=== PATIENT | female | born 1965 | race Caucasian/White ===

== ENCOUNTER 2019-09-27 14:09 | Inpatient (IN) | payer OTHER ==
[~2019-09-27] VITALS: Ht 167.6 cm; Wt 99.3 kg
[2019-09-27 15:17] LABS: BASOPHILS ABSOLUTE AUTO 0.06 K/mm3 (0.00-0.23); BASOPHILS PERCENT AUTO 0 % (0-2); EOSINOPHILS ABSOLUTE AUTO 0.01 K/mm3 (0.00-0.68); EOSINOPHILS PERCENT AUTO 0 % (0-6); Hematocrit 35.3 % (33.0-51.0); Hemoglobin 11.3 g/dL (11.5-16.0); IMMATURE GRAN ABSOLUTE AUTO 0.12 K/mm3 (0.00-0.10); IMMATURE GRAN PERCENT AUTO 1 % (0-1); LYMPHOCYTES ABSOLUTE AUTO 1.34 K/mm3 (0.84-5.20); LYMPHOCYTES PERCENT AUTO 8 % (21-46); MONOCYTES ABSOLUTE AUTO 1.32 K/mm3 (0.16-1.47); MONOCYTES PERCENT AUTO 8 % (4-13); Mean Corpuscular HGB 28.9 pg (26.0-34.0); Mean Corpuscular Volume 90 fL (80-100); Mean Platelet Volume 11.5 fL (9.1-12.4); NEUTROPHILS ABSOLUTE AUTO 14.67 K/mm3 (1.96-9.15); NEUTROPHILS PERCENT AUTO 84 % (41-73); Platelet Count 207 K/mm3 (150-400); RDW Standard Deviation 48.4 fL (35.1-46.3); Red Blood Cell Count 3.91 M/mm3 (3.80-5.20); White Blood Cell Count 17.52 K/mm3 (4.00-11.30)
[2019-09-27 15:53] LABS: Alanine Aminotransfer (ALT/SGP 15 U/L (12-78); Albumin, Blood 3.1 g/dL (3.4-5.0); Albumin/Globulin Ratio 0.6 (0.8-1.8); Alk Phos 94 U/L (50-136); Anion Gap 9 mmol/L (6-16); Aspartate Aminotrans (AST/SGOT 17 U/L (12-37); Bilirubin, Total 1.2 mg/dL (0.1-1.0); Blood Urea Nitrogen 30 mg/dL (8-24); Bun/Creatinine Ratio 21.3 (12.0-20.0); CO2, Blood 19 mmol/L (21-32); Calcium, Blood 8.7 mg/dL (8.5-10.1); Chloride, Blood 105 mmol/L (98-108); Creatinine, Blood 1.41 mg/dL (0.40-1.00); Globulin, Blood 4.9 g/dL (2.2-4.0); Glomerular Filtration Rate 41 (60-); Glucose, Blood 209 mg/dL (70-99); Potassium, Blood 3.6 mmol/L (3.5-5.5); Sodium, Blood 133 mmol/L (136-145); Troponin I <0.015 ng/mL (0.000-0.040)
[2019-09-27] MEDS ORDERED: CALCIUM 600 +1 EA11 (17:03)
[2019-09-27] MEDS ORDERED: MELATONIN5 M1 PO (17:03)
[2019-09-27] MEDS ORDERED: ASCO500 PO (17:03)
[2019-09-27] MEDS ORDERED: GABA300 PO (17:04)
[2019-09-27] MEDS ORDERED: METO100 PO (17:05)
[2019-09-27] MEDS ORDERED: TOPI50 PO (17:05)
[2019-09-27] MEDS ORDERED: BENZ100A (17:06)
[2019-09-27] MEDS ORDERED: Jantoven10 MG PO (17:06)
[2019-09-27] MEDS ORDERED: TORSE20 PO (17:07)
[2019-09-27] MEDS ORDERED: NEURONTIN300 MG PO (18:11)
[2019-09-27] MEDS ORDERED: BUPROPION XL150 M1 PO (18:11)
[2019-09-27] MEDS ORDERED: DILTIAZEM ER300 MG PO (18:11)
[2019-09-27] MEDS ORDERED: WARF1 PO (18:17)
[2019-09-27 18:53] LABS: International Normalized Ratio 1.88; Prothrombin Time Results 19.4 Sec (9.7-11.5)
[2019-09-27 22:30] LABS: PCO2 Arterial 27.1 mmHg (35-45); PO2 Arterial 65.8 mmHg (80-100); pH Blood Arterial 7.38 (7.35-7.45)
--- NOTE | 2019-09-27 23:13 | NUR ---
2200 PATIENT CALLED REQUESTING BLANKETS. VELMA RN ENTERED ROOM AND NOTICED FACE MORE PURPLE AND LIPS BLUEISH. PATIENT TALKING IN FULL SENTENCES AND BUT RESP AROUND 30. NOTICED MOTTLING ON ARMS AND LEGS. O2 STARTED AT 2L, O2 SATS HARD TO ASSESS D/T LOW PROFUSION. O2 INCREASED TO 4L NC. SUSAN RT NOTIFIED AND ARRIVED AT ROOM. NATALIYA JOSE, ICU ARRIVED PATIENT COLOR RETURNING, O2 SAT IMPROVED TO 93%. ABG DRAWN BY RT TAMEKA, RESULTS UNREMARKABLE. THIS RN, DAMON AN AND SUSAN RT REVIEWED CHARTS AND HISTORY. PATIENTS SYMPTOMS RESOLVED SPONTANIOUSLY.
[2019-09-27 23:46] LABS: Source, Urine Catheter
[2019-09-27 23:53] LABS: Bilirubin, Urine Neg (Neg); Blood, Urine Neg (Neg); Glucose Qualitative, Urine Neg (Neg); Ketones, Urine Neg (Neg); Leukocyte Esterase, Urine Neg (Neg); Nitrite, Urine Neg (Neg); Protein, Urine Neg (Neg); Specific Gravity, Urine 1.025 (1.003-1.022); Urobilinogen, Urine NORM (Normal)
[2019-09-28 00:07] LABS: Appearance, Urine Hazy (Clear); Color, Urine Yellow (P-Yellow)
[2019-09-28 00:09] LABS: U Amphetamine Screen Not Detected; U Barbituate Screen Not Detected; U Benzodiazapine Screen Not Detected; U Buprenorphine Screen Not Detected; U Cannabinoids Screen DETECTED; U Cocaine Screen Not Detected; U Methadone Screen Not Detected; U Methamphetamine Screen Not Detected; U Opiates Screen Not Detected; U Oxycodone Screen Not Detected; U Phencyclidine Screen Not Detected; U Propoxyphene Screen Not Detected
[2019-09-28 00:09] LABS: Amorphous Light (0-Heavy); Bacteria Many /hpf; Mucus Light (0-Heavy); Red Blood Cells, Urine Not Seen /hpf (0-2); Squamous Epithelial Cells Many /hpf (Few)
[2019-09-28 04:37] LABS: BASOPHILS ABSOLUTE AUTO 0.09 K/mm3 (0.00-0.23); BASOPHILS PERCENT AUTO 1 % (0-2); EOSINOPHILS ABSOLUTE AUTO 0.11 K/mm3 (0.00-0.68); EOSINOPHILS PERCENT AUTO 1 % (0-6); Hematocrit 36.1 % (33.0-51.0); Hemoglobin 10.4 g/dL (11.5-16.0); IMMATURE GRAN ABSOLUTE AUTO 0.15 K/mm3 (0.00-0.10); IMMATURE GRAN PERCENT AUTO 1 % (0-1); LYMPHOCYTES ABSOLUTE AUTO 2.03 K/mm3 (0.84-5.20); LYMPHOCYTES PERCENT AUTO 12 % (21-46); MONOCYTES ABSOLUTE AUTO 0.96 K/mm3 (0.16-1.47); MONOCYTES PERCENT AUTO 6 % (4-13); Mean Corpuscular HGB 28.3 pg (26.0-34.0); Mean Corpuscular HGB Conc 28.8 g/dL (31.5-36.5); Mean Platelet Volume 11.7 fL (9.1-12.4); NEUTROPHILS ABSOLUTE AUTO 13.43 K/mm3 (1.96-9.15); NEUTROPHILS PERCENT AUTO 80 % (41-73); Platelet Count 195 K/mm3 (150-400); RDW Coefficient Variation 15.1 % (11.7-14.2); RDW Standard Deviation 54.7 fL (35.1-46.3); Red Blood Cell Count 3.68 M/mm3 (3.80-5.20); White Blood Cell Count 16.77 K/mm3 (4.00-11.30)
[2019-09-28 04:39] LABS: Mean Corpuscular Volume 98 fL (80-100)
[2019-09-28 04:51] LABS: International Normalized Ratio 2.24; Prothrombin Time Results 22.9 Sec (9.7-11.5)
[2019-09-28 04:59] LABS: Albumin, Blood 2.7 g/dL (3.4-5.0); Albumin/Globulin Ratio 0.6 (0.8-1.8); Bilirubin, Total 1.1 mg/dL (0.1-1.0); Bun/Creatinine Ratio 20.8 (12.0-20.0); Calcium, Blood 7.5 mg/dL (8.5-10.1); Creatinine, Blood 1.44 mg/dL (0.40-1.00); Globulin, Blood 4.9 g/dL (2.2-4.0); Potassium, Blood 4.2 mmol/L (3.5-5.5); Total Protein, Blood 7.6 g/dL (6.4-8.2)
--- NOTE | 2019-09-28 06:25 | NUR ---
ASSUMED CARE OF PATIENT SHORTLY AFTER SHIFT CHANGE. SEPSIS PROTOCOL INITIATED. ADMINISTERED 2.5L BOLUS AND STARTED MAINTENANCE FLUIDS OF 150/HR. PATIENT COMPLAINING OF SOB. BREATHING 94% SPO2 ON 4L NC. COMPLAINING OF CHRONIC BACK PAINS UNRELIEVED BY TYLENOL, BACLOFEN, TRAMADOL AND NORCO. PATIENT INCREASINGLY ANXIOUS AND INCONSOLABLE. SPIRITUAL CARE CONSULT CALLED. UA POSITIVE FOR INFECTION. EDUCATED PATIENT ON USE OF CALL LIGHT FOR ASSISTANCE. BED LOWERED TO LOWEST POSITION, CALL LIGHT WITHIN REACH. WILL CONTINUE TO MONITOR UNTIL END OF SHIFT.
--- NOTE | 2019-09-28 12:50 | NUR ---
Echocardiogram completed.
[2019-09-28 13:00] LABS: PCO2 Arterial 26.1 mmHg (35-45); PO2 Arterial 91.4 mmHg (80-100); pH Blood Arterial 7.14 (7.35-7.45)
--- NOTE | 2019-09-28 13:00 | NUR ---
TRANSFER PT TRANSFERED TO ICU 7. REPORT GIVEN TO LILIANE Sanders RN. PT IS ALERT, RESP LABORED, 6 L O2 VIA NC, BELONGINGS TRANSFERED WITH PT. ECHO WAS COMPLETED PRIOR TO TRANSFER.
[2019-09-28 14:40] LABS: Source, Urine Catheter
[2019-09-28 14:42] LABS: BASOPHILS ABSOLUTE AUTO 0.06 K/mm3 (0.00-0.23); BASOPHILS PERCENT AUTO 0 % (0-2); EOSINOPHILS ABSOLUTE AUTO 0.01 K/mm3 (0.00-0.68); EOSINOPHILS PERCENT AUTO 0 % (0-6); Hematocrit 36.8 % (33.0-51.0); Hemoglobin 10.9 g/dL (11.5-16.0); IMMATURE GRAN ABSOLUTE AUTO 0.45 K/mm3 (0.00-0.10); IMMATURE GRAN PERCENT AUTO 2 % (0-1); LYMPHOCYTES ABSOLUTE AUTO 1.15 K/mm3 (0.84-5.20); LYMPHOCYTES PERCENT AUTO 6 % (21-46); MONOCYTES PERCENT AUTO 6 % (4-13); Mean Corpuscular HGB 28.2 pg (26.0-34.0); Mean Corpuscular HGB Conc 29.6 g/dL (31.5-36.5); Mean Corpuscular Volume 95 fL (80-100); NEUTROPHILS ABSOLUTE AUTO 16.71 K/mm3 (1.96-9.15); NEUTROPHILS PERCENT AUTO 86 % (41-73); NRBC ABSOLUTE 0.02 K/mm3 (0.00-0.02); NRBC Auto 0.1 /100 WBC (0.0-0.2); Platelet Count 231 K/mm3 (150-400); RDW Coefficient Variation 15.3 % (11.7-14.2); RDW Standard Deviation 53.8 fL (35.1-46.3); Red Blood Cell Count 3.87 M/mm3 (3.80-5.20); White Blood Cell Count 19.48 K/mm3 (4.00-11.30)
[2019-09-28 14:43] LABS: Bilirubin, Urine Neg (Neg); Blood, Urine 1+ (Neg); Glucose Qualitative, Urine Neg (Neg); Ketones, Urine 1+ (Neg); Leukocyte Esterase, Urine 1+ (Neg); Nitrite, Urine Neg (Neg); Protein, Urine 3+ (Neg); Specific Gravity, Urine 1.025 (1.003-1.022); Urobilinogen, Urine NORM (Normal)
[2019-09-28 14:56] LABS: Appearance, Urine Cloudy (Clear); Color, Urine Yellow (P-Yellow)
[2019-09-28 14:59] LABS: Amorphous Light (0-Heavy); Bacteria Few /hpf; Squamous Epithelial Cells Mod /hpf (Few)
[2019-09-28 15:07] LABS: Albumin, Blood 2.5 g/dL (3.4-5.0); Anion Gap 15 mmol/L (6-16); Blood Urea Nitrogen 37 mg/dL (8-24); Bun/Creatinine Ratio 17.5 (12.0-20.0); CO2, Blood 13 mmol/L (21-32); Calcium, Blood 7.1 mg/dL (8.5-10.1); Chloride, Blood 109 mmol/L (98-108); Creatinine, Blood 2.11 mg/dL (0.40-1.00); Glomerular Filtration Rate 26 (60-); Glucose, Blood 145 mg/dL (70-99); Phosphorus, Blood 7.6 mg/dL (2.5-4.9); Potassium, Blood 5.6 mmol/L (3.5-5.5); Sodium, Blood 137 mmol/L (136-145); Troponin I <0.015 ng/mL (0.000-0.040)
--- NOTE | 2019-09-28 15:30 | NUR ---
Echocardiogram completed.
[2019-09-28 15:42] LABS: Prothrombin Time Results 43.3 Sec (9.7-11.5)
[2019-09-28 15:44] LABS: International Normalized Ratio 4.4
[2019-09-28 15:52] LABS: PCO2 Arterial 20.3 mmHg (35-45); PO2 Arterial 489 mmHg (80-100)
[2019-09-28 15:53] LABS: pH Blood Arterial 7.24 (7.35-7.45)
[2019-09-28 16:11] LABS: Adenovirus Not Detected (NOT DETECT); Bordetella pertussis Not Detected (NOT DETECT); Chlamydophila pneumoniae Not Detected (NOT DETECT); Coronavirus 229E Not Detected (NOT DETECT); Coronavirus HKU1 Not Detected (NOT DETECT); Coronavirus NL63 Not Detected (NOT DETECT); Coronavirus OC43 Not Detected (NOT DETECT); Human Metapneumovirus Not Detected (NOT DETECT); Human Rhinovirus/Enterovirus Not Detected (NOT DETECT); Influenza A/2009-H1 Not Detected (NOT DETECT); Influenza A/H1 Not Detected (NOT DETECT); Influenza A/H3 Not Detected (NOT DETECT); Influenza B Not Detected (NOT DETECT); Mycoplasma pneumoniae Not Detected (NOT DETECT); Parainfluenza Virus 1 Not Detected (NOT DETECT); Parainfluenza Virus 2 Not Detected (NOT DETECT); Parainfluenza Virus 3 Not Detected (NOT DETECT); Parainfluenza Virus 4 Not Detected (NOT DETECT); Respiratory Syncytial Virus Not Detected (NOT DETECT)
--- NOTE | 2019-09-28 16:26 | NUR ---
ICU TRANSFER Assumed care of pt upon arrival to unit from ICU 7 from PCU 9 at 1240. Pt transferred to ICU per Dr Campa due to increased work of breathing. On arrival, pt was A&O x 4. Speaking in 2-3 word sentences. Inquired who should be notified of her transfer to ICU. Pt states "They don't know I'm here anyways, so what's the point". Family attempted to be reached by CONFERENCE PLANNING MANAGER, Alix - tabitha. Pt on 6 LPM NC. Unable to obtain SpO2 reading initially, until forehead sensor placed. Sats below 90% with poor quality pleth. Pt placed on 15 LPM oxymizer. RR 30. Pt gasping when breathing. Lung sounds coarse in upper lobes and dim in lower lobes. Unable to obtain BP reading with brachial or radial cuff, however pt remains alert and answering questions. This RN addressed pt's code status, which was initially DNR. Discussed that pt is currently extremely ill and close to intubation. Pt states she is familiar with this as she was recently intubated during a hospitalization at [facility]. This RN asks pt if she is okay with intuabtion again. Pt states "Well I'm 53 years old, but I'm homeless, penniless. I'm not close with my family. What's the point of keeping me alive." Pt then details that she thinks her family would be upset with her if she chose to be a DNR and states "Do everything you need to, to keep me alive.". Dr Higgins notified of pt's wishes, and pt changed to full code. Dr Higgins in room at 1300 to assess patient. Decision made to intubate. Pt verbalizes understanding. Anxious. Pt states her main concern is shortness of breath. Pt received 100 mg propofol, 10 mg versed, and 50 mg rocuronium for intubation. Intubated with 7.5 cm ETT, 24 cm DANIEL, at 1322. Connected to ventilator AC 16/450/5/100%. Ventilator settings titrated and eventually changed to AC 16, pressure control 26/16, FiO2 100%. PEEP 16. Pt started on levophed, initially at 5 mcg/min, peripherally. Central line placed to right IJ by Dr Higgins. Levophed titrated up to 30 mcg/min, vasopressin started. Nimbex started. Still unable to obtain peripheral BP. OG tube and andrade inserted. CXR obtained to verify placement of CVC, OG tube, and ETT. Arterial line started to right axilla by Dr Higgins. BP measured- MAP 80s-90s. Began titrating levophed down. At this time, pt is on vasopressin and 10 mcg/min levophed. Propofol 40 mcg/kg/min. Nimbex at 4 mcg/min. Train 4/4. BIS score 40. Dr Higgins attempted to get a hold of pt's son. Unable to do so.
--- NOTE | 2019-09-28 18:45 | NUR ---
SUMMARY Bedside report given to Florence JOSE. At this time, levophed is at 5 mcg/min. Vasopressin off. Nimbex at 4 mcg/kg/min. Propofol at 30 mcg/kg/min. Pt on AC/PC with rate 20, pressure 16/18, FiO2 50%. SpO2 90% or greater. Pt has remained out of restraints for entire shift due to paralytic medication administration. Train 4/4. Still unable to reach pt's family.
--- NOTE | 2019-09-28 19:00 | NUR ---
ASSUMED CARE NOTE: ASSUMED CARE OF PT AT 1900, RECEVIED REPORT FROM LILIANE JOSE. PT VENTED AND SEDATED AND PARALYZED WITH NIMBEX. PROPOFOL RUNNING AT 30MCG/KG/MIN, NIMBEX RUNNING AT 4MCG/KG/MIN. NO BIS MONITOR READING AT THIS TIME, TOF 0/4. NIMBEX TURNED DOWN TO 2MCG/KG/MIN WILL TITRATE TO EFFECT AND TOF READING. VENT SETTING ARE PC 16, RATE 20, FiO2 OF 50%, PEEP 18, SPO2 ABOVE 90% NO RESPONSE TO SITMULI. PT IS VERY DIAPHORETIC. COARSE LUNG SOUNDS IN UPPER LOBES, DIM IN THE BILAT LOWER BASES. PT IN SIT WITH HR @ 105, LEVOPHED RUNNING AT 5MCG/MIN, MAP ABOVE 65. ARTLINE TO RIGHT AXILLARY, DRESSING C/D/I. RADIAL AND PEDAL PULSES FOUND WITH DOPPLER. TEMP SMALL PATNET DRAINING ANEL COLORED URINE. BED AT LOWEST LEVEL. PT REPOSITIONED, WILL CONTINUE TO MONITOR PT T/O SHIFT.
--- NOTE | 2019-09-28 19:15 | NUR ---
UPDATE: NIMBEX TITRATED TO 1MCG/KG/MIN. PROPOFOL AT 20MCG/KG/MIN BIS MONITOR READING 40. CALLED DR. VIVAS REGARDING METOPROLOL, ORDERS TO DC MEDICATION GIVEN. VERIFED WITH PHARMACY REGARDING TOPAMAX, WAS GIVEN THE OK TO CRUSH AND DELIVER TO [facility].
[2019-09-28 20:51] LABS: PCO2 Arterial 39.7 mmHg (35-45); PO2 Arterial 113 mmHg (80-100); pH Blood Arterial 7.15 (7.35-7.45)
[2019-09-28 21:12] LABS: Albumin, Blood 3.3 g/dL (3.4-5.0); Anion Gap 12 mmol/L (6-16); Blood Urea Nitrogen 42 mg/dL (8-24); Bun/Creatinine Ratio 21.4 (12.0-20.0); CO2, Blood 16 mmol/L (21-32); Calcium, Blood 6.6 mg/dL (8.5-10.1); Chloride, Blood 108 mmol/L (98-108); Creatinine, Blood 1.96 mg/dL (0.40-1.00); Glomerular Filtration Rate 28 (60-); Glucose, Blood 264 mg/dL (70-99); Phosphorus, Blood 6.3 mg/dL (2.5-4.9); Potassium, Blood 4.8 mmol/L (3.5-5.5); Sodium, Blood 136 mmol/L (136-145)
[2019-09-28 21:21] LABS: Prothrombin Time Results 61.1 Sec (9.7-11.5)
[2019-09-28 21:22] LABS: International Normalized Ratio 6.34
--- NOTE | 2019-09-28 21:31 | NUR ---
CALLED REGARDING CRITICAL INR OF 6.34. NO NEW ORDERS GIVEN. WILL CONTINUE TO MONITOR FOR S/S OF BLEEDING.
--- NOTE | 2019-09-28 22:49 | NUR ---
UPDATE: PT TV ON VENT READ BELOW 200 FOR 30 SECOUNDS, PT SPO2 WENT DOWN TO 85%. PT WAS PLACED ON 100% FiO2 FOR FIVE MIN. RT CALLED TO BEDSIDE. PT RECOVERED AFTER 5 MINUTUES. VENT SETTINGS CHANGED TO PC 22, RATE OF 24, FIO2 OF 50%, PEEP 18, SPO2 NOW READING ABOVE 90% LEVOPHED IS NOW AT 20MCG/KG/MIN DUE TO LOW BP, VASOPRESSIN ON AT 0.04MCG/MIN. PROPOFOL AT 15MCG/KG/MIN, BIS MONITOR READING 40. NIMBEX AT 1MCG/KG/MIN, TOF 0/4 AT THIS TIME.
[2019-09-28 23:12] LABS: PCO2 Arterial 33.3 mmHg (35-45); PO2 Arterial 153 mmHg (80-100)
[2019-09-28 23:14] LABS: pH Blood Arterial 7.17 (7.35-7.45)
--- NOTE | 2019-09-28 23:18 | NUR ---
UPDATE: UPDATED REGARDING PT'S STAUTS. RT CECI TALKED TO REGARDING VENT SETTINGS, ORDERS PLACED. WILL CONTINUE TO CHECK ABG Q2HR. PT CONTINUES TO HAVE 0/4 TOF. SPOKE TO CHARGE NURSE REGARDING NIMBEX, NIMBEX WILL REMAIN AT 1MCG/KG/MIN, TOF WILL BE ASSESSED Q30-60 MIN.
--- NOTE | 2019-09-29 00:23 | NUR ---
UPDATE: PT LEVOPHED IS NOW 8MCG/KG/MIN, VASOPRESSIN AT 0.04MCG/MIN. NIMBEX AT 1MCG/KG/MIN, TOF 1/4 TO RIGHT FACIAL NERVE. PROPOFOL TITRATED TO 20MCG/KG/MIN BIS MONITOR READING 58. LUNG SOUNDS ARE COARSE T/O , SCANT AMOUNTS OF WHITE THICK SPUTUM NOTED, SAMPLE SENT TO LAB. VENT SETTINGS AT PC 22, RATE 24, PEEP 18, FiO2 OF 35%, SPO2 OF 97% ALL PERIPHERAL PULSES FOUND WITH DOPPLER. BUE AND BLE MOTTLED AND COOL TO THE TOUCH, CAP REFILL LONGER THAN 3 SEC. WARM BLANKETS APPLIED TO ALL EXTREMITIES. BED AT LOWEST LEVEL, WILL CONTINUE TO MONITOR PT T/O SHIFT.
[2019-09-29 01:30] LABS: PCO2 Arterial 25.5 mmHg (35-45); PO2 Arterial 153 mmHg (80-100); pH Blood Arterial 7.36 (7.35-7.45)
[2019-09-29 02:40] LABS: Albumin, Blood 2.8 g/dL (3.4-5.0); Anion Gap 13 mmol/L (6-16); Blood Urea Nitrogen 43 mg/dL (8-24); Bun/Creatinine Ratio 22.1 (12.0-20.0); CO2, Blood 16 mmol/L (21-32); Calcium, Blood 6.4 mg/dL (8.5-10.1); Chloride, Blood 108 mmol/L (98-108); Creatinine, Blood 1.95 mg/dL (0.40-1.00); Glomerular Filtration Rate 28 (60-); Glucose, Blood 258 mg/dL (70-99); Phosphorus, Blood 4.5 mg/dL (2.5-4.9); Potassium, Blood 4.1 mmol/L (3.5-5.5); Sodium, Blood 137 mmol/L (136-145)
[2019-09-29 03:02] LABS: Prothrombin Time Results 74.6 Sec (9.7-11.5)
[2019-09-29 03:03] LABS: International Normalized Ratio 7.83
[2019-09-29 03:20] LABS: PCO2 Arterial 27.4 mmHg (35-45); PO2 Arterial 146 mmHg (80-100); pH Blood Arterial 7.38 (7.35-7.45)
--- NOTE | 2019-09-29 04:31 | NUR ---
UPDATE: BIS MONITOR NOT WORKING PROPERLY, DESPITE ADHESIVE USED TO HOLD ELECTRODES IN PLACE. NIMBEX CURRENTLY AT 1MCG/KG/MIN. TOF 1/4, PROPOFOL AT 25MCG/KG/MIN.
[2019-09-29 05:03] LABS: PCO2 Arterial 30.1 mmHg (35-45); PO2 Arterial 101 mmHg (80-100); pH Blood Arterial 7.38 (7.35-7.45)
--- NOTE | 2019-09-29 06:29 | NUR ---
SHIFT SUMMARY: SEE PREVIOUS NOTES. PT REMAINS ON NIMBEX AT 1MCG/KG/MIN, TO4 1/4 TO FACIAL NERVE, BEEN TAKING TOF [id number]. PROPOFOL AT 20MCG/KG/MIN, BIS MONITOR READING FROM 38-50'S. VENT SETTINGS REMAIN AT PC 22, RATE 24, PEEP 18, FiO2 AT 25%, SPO2 @ 95% PT HAS BEEN HAVING MODERATE AMOUNTS OF THICK WHITE/DUEÑAS SPUTUM. LUNG SOUNDS COARSE T/O. PT HAS BEEN IN SIT WITH HR BETWEEN 110-120'S. PULSES TO EXTREMITIES CAN BE FOUND WITH DOPPLER. OGT TO LIS 200ML OUTPUT, GREEN AND PINK DRAINAGE NOTED, CANISTER CHANGED. SMALL PATENT AND DRAINING ANEL COLORED URINE, OUTPUT FOR SHIFT 400ML. BLE ARE COOL TO THE TOUCH, POOR CAP REFILL, CHARGE NURSE APPLIED WARM BLANKET TO BLE. LEVOPHED RUNNING AT 8MCG/KG/MIN, BP STABLE AT THIS TIME. BED AT LOWEST LEVEL, PT REPOSITIONED. WILL CONTINUE TO MONITOR PT UNTIL REPORT IS GIVEN TO ONCOMING SHIFT.
[2019-09-29 06:31] LABS: BASOPHILS ABSOLUTE AUTO 0.07 K/mm3 (0.00-0.23); BASOPHILS PERCENT AUTO 0 % (0-2); EOSINOPHILS ABSOLUTE AUTO 0.13 K/mm3 (0.00-0.68); EOSINOPHILS PERCENT AUTO 1 % (0-6); Hematocrit 31.4 % (33.0-51.0); Hemoglobin 10.2 g/dL (11.5-16.0); IMMATURE GRAN PERCENT AUTO 2 % (0-1); LYMPHOCYTES ABSOLUTE AUTO 1.83 K/mm3 (0.84-5.20); LYMPHOCYTES PERCENT AUTO 11 % (21-46); MONOCYTES ABSOLUTE AUTO 1.22 K/mm3 (0.16-1.47); MONOCYTES PERCENT AUTO 7 % (4-13); Mean Corpuscular HGB 28.6 pg (26.0-34.0); Mean Corpuscular HGB Conc 32.5 g/dL (31.5-36.5); Mean Platelet Volume 12.2 fL (9.1-12.4); NEUTROPHILS PERCENT AUTO 79 % (41-73); NRBC ABSOLUTE 0.04 K/mm3 (0.00-0.02); NRBC Auto 0.2 /100 WBC (0.0-0.2); Platelet Count 208 K/mm3 (150-400); RDW Coefficient Variation 14.6 % (11.7-14.2); RDW Standard Deviation 46.5 fL (35.1-46.3); Red Blood Cell Count 3.57 M/mm3 (3.80-5.20); White Blood Cell Count 16.55 K/mm3 (4.00-11.30)
[2019-09-29 06:32] LABS: Mean Corpuscular Volume 88 fL (80-100)
[2019-09-29 06:48] LABS: Vancomycin, Trough 20.2 ug/mL (5.0-10.0)
--- NOTE | 2019-09-29 07:15 | NUR ---
BEGINNING OF SHIFT Assumed care of pt at 0700 from Florence JOSE. Pt sedated with 20 mcg/kg/min propofol. Cisatracurium at 1 mcg/kg/min. Receiving levophed at 8 mcg/min. Vasopressin off. Pt unresponsive. No movement BUE/BLE. Train 4/4. No coughing. Pt gagging with oral care. BIS 30-50. Pt on mechanical ventilator with 7.5 cm ETT, 24 cm DANIEL. Pt on pressure control ventilation: Rate 24, P1 22, T1 0.80, PEEP 18, FiO2 25%. SpO2 90% or greater. Tidal volumes 350-400 mL. Rate 20-24. Lungs coarse RUL/RML/IGOR. Diminished RLL/LLL. No sputum aspirated from in-line suction. OG tube to LIS. Bilious drainage. Absent bowel tones. Walters catheter for strict I/O draining clear yellow urine. Excellent urine output reported by previous shift. Bilateral radial, posttibial, and pedal pulses identified with doppler. Capillary refill equal BUE/BLE, greater than 3 seconds. Arterial line present to right axilla for blood pressure measurement. Right subclavian CVC for medication administration.
--- NOTE | 2019-09-29 07:30 | NUR ---
CASE DISCUSSED WITH DR ZENDEJAS Provider called unit for update on patient. Provider notified that pt remains in facility as accepting hospital, [facility], does not have an open bed to receive this patient. Discussed vasopressor requirements, noting that it was improved from previous day.
[2019-09-29 07:44] LABS: PCO2 Arterial 25.7 mmHg (35-45); PO2 Arterial 102 mmHg (80-100); pH Blood Arterial 7.45 (7.35-7.45)
[2019-09-29 08:38] LABS: Albumin, Blood 2.8 g/dL (3.4-5.0); Anion Gap 9 mmol/L (6-16); Blood Urea Nitrogen 40 mg/dL (8-24); Bun/Creatinine Ratio 21.9 (12.0-20.0); CO2, Blood 21 mmol/L (21-32); Calcium, Blood 6.8 mg/dL (8.5-10.1); Chloride, Blood 107 mmol/L (98-108); Creatinine, Blood 1.83 mg/dL (0.40-1.00); Glomerular Filtration Rate 31 (60-); Glucose, Blood 192 mg/dL (70-99); Phosphorus, Blood 3.2 mg/dL (2.5-4.9); Potassium, Blood 3.5 mmol/L (3.5-5.5); Sodium, Blood 137 mmol/L (136-145)
--- NOTE | 2019-09-29 08:45 | NUR ---
CASE DISCUSSED WITH DR VIVSA Provider in to see pt. Pt is off vasopressors at this time. Provider states to begin titrating PEEP down. Provider changes PEEP from 18 to 16. States cisatracurium may be stopped when PEEP is down to 14, and sedation interruption may be performed. States FiO2 may be increased if needed. States goal SpO2 is 88% or greater. Changes notified to RT Roro.
[2019-09-29 08:49] LABS: Prothrombin Time Results 60.2 Sec (9.7-11.5)
[2019-09-29 08:51] LABS: International Normalized Ratio 6.24
--- NOTE | 2019-09-29 09:45 | NUR ---
CASE DISCUSSED WITH ISTRATE Provider in to see patient. No new orders at this time.
[2019-09-29 09:49] LABS: PCO2 Arterial 31.3 mmHg (35-45); PO2 Arterial 70.4 mmHg (80-100); pH Blood Arterial 7.41 (7.35-7.45)
--- NOTE | 2019-09-29 10:02 | NUR ---
UPDATE Vasopressors remain off. BP stable with MAP in 80s. Sinus tachycardia, rate 105-115. Propofol at 20 mcg/kg/min. Cisatracurium at 1 mcg/kg/min. Train 4/4. Vent settings AC/PC rate 24, P1 22, T1 0.80, PEEP 16.0, FiO2 25%.
--- NOTE | 2019-09-29 13:13 | NUR ---
UPDATE Pt required fentanyl and midazolam IV push due to persistent coughing. After administration, pt required levophed to keep BP stable. Levophed currently at 3 mcg/min.
--- NOTE | 2019-09-29 13:43 | NUR ---
Patient is lying in bed and is not responsive to voice or touch. No family is present. Based on patient's earlier request for spiritual care and that patient stated upon admission that her faith preference is Jain, I read scriptures to patient and provide prayer. Patient shows no change. I will continue to remain available to patient and family.
[2019-09-29 14:48] LABS: Albumin, Blood 2.6 g/dL (3.4-5.0); Anion Gap 10 mmol/L (6-16); Blood Urea Nitrogen 36 mg/dL (8-24); Bun/Creatinine Ratio 22.5 (12.0-20.0); CO2, Blood 22 mmol/L (21-32); Calcium, Blood 6.9 mg/dL (8.5-10.1); Chloride, Blood 106 mmol/L (98-108); Glomerular Filtration Rate 36 (60-); Glucose, Blood 225 mg/dL (70-99); Phosphorus, Blood 2.5 mg/dL (2.5-4.9); Potassium, Blood 3.1 mmol/L (3.5-5.5); Sodium, Blood 138 mmol/L (136-145)
[2019-09-29 14:49] LABS: Prothrombin Time Results 47.5 Sec (9.7-11.5)
[2019-09-29 14:50] LABS: International Normalized Ratio 4.85
[2019-09-29 16:29] LABS: PCO2 Arterial 37.1 mmHg (35-45); PO2 Arterial 65.7 mmHg (80-100); pH Blood Arterial 7.36 (7.35-7.45)
--- NOTE | 2019-09-29 17:54 | NUR ---
TRANSFER TO [facility] Pt transferred to [facility] by [facility]. Levophed and propofol continued on transfer. Per Dr Higgins, bicarb drip can be stopped for transfer. Report called to Abigail JOSE at [facility]. Pt assigned to room 4216. Belongings transferred with patient. Again tried to call son, Hardy Maza, with provided phone number [phone]. Unable to reach with error message "the person you are trying to call is not accepting phone calls".
== END 2019-09-29 17:40 | disposition short-term general hospital (02) | DRG 871 ==
LOC: ER 14:09 → ICUE 18:13 → PCU 18:13 → ICUE 09-28 12:33
PROVIDERS: Emergency Medicine; Internal Medicine Critical Care Medicine; Nurse Practitioner Acute Care; ADMIT Family Medicine
PROC: 0BH17EZ Insertion of Endotracheal Airway into Trachea, Via Natural or Artificial Opening (ICD-10-PCS; principal; 2019-09-28)
PROC: 5A1945Z Respiratory Ventilation, 24-96 Consecutive Hours (ICD-10-PCS; 2019-09-28)
PROC: 03H533Z Insertion of Infusion Device into Right Axillary Artery, Percutaneous Approach (ICD-10-PCS; 2019-09-28)
PROC: 05H533Z Insertion of Infusion Device into Right Subclavian Vein, Percutaneous Approach (ICD-10-PCS; 2019-09-28)
DX: A41.9 Sepsis, unspecified organism (principal); J18.9 Pneumonia, unspecified organism; R65.21 Severe sepsis with septic shock; U07.1 COVID-19; J96.91 Respiratory failure, unspecified with hypoxia; I76 Septic arterial embolism; T82.6XXA Infection and inflammatory reaction due to cardiac valve prosthesis, initial encounter; I38 Endocarditis, valve unspecified; N18.3 Chronic kidney disease, stage 3 (moderate); E11.22 Type 2 diabetes mellitus with diabetic chronic kidney disease; E86.0 Dehydration; Z66 Do not resuscitate; F32.9 Major depressive disorder, single episode, unspecified; I08.1 Rheumatic disorders of both mitral and tricuspid valves; F17.210 Nicotine dependence, cigarettes, uncomplicated; E66.9 Obesity, unspecified; Z68.31 Body mass index [BMI] 31.0-31.9, adult; Z86.73 Personal history of transient ischemic attack (TIA), and cerebral infarction without residual deficits
CPT/HCPCS: 0099U; 31500; 31720; 36415; 36556; 36600; 36620; 51702; 71045; 71046; 80053; 80069; 80202; 81001; 82803; 82947; 83605; 83735; 83880; 84484; 85025; 85610; 85730; 87040; 87070; 87086; 87205; 93005; 93010; 94002; 94003; 94640; 94660; 94762; 96361; 96365; 96367; 99285-25; A9270; A9270-GY; C1751; C8929; C9113; G0480; J0456; J0692; J2250; J2405; J2704; J2930; J3010; J3370; J7030; J7040; J7050; J7060; J7070; J7120; P9046; Q9957; U0002